=== PATIENT | male | born 1995 | race Hispanic/Latino ===

== ENCOUNTER 2020-12-04 08:41 | Emergency (ER) | payer SELFPAY ==
[~2020-12-04] VITALS: Ht 175.3 cm; Wt 95.3 kg
[2020-12-04 08:43] VITALS: BP 176/93
[2020-12-04] MEDS ORDERED: AMOX-429 PO (09:07)
[2020-12-04] MEDS ORDERED: NAPR500T6 PO (09:07)
[2020-12-04] MEDS ORDERED: DIPH,PERTUSS(ACELL),TET VAC/PF 0.5 ML VIAL IM SCH (09:30)
[2020-12-04] MEDS ORDERED: DIPH,PERTUSS(ACELL),TET VAC/PF 0.5 ML VIAL IM ONE (10:00)
[2020-12-04] MEDS ORDERED: TETANUS/DIPHTHERIA TOXOID [ADULT] 0.5 ML VIAL IM ONE (10:03)
[2020-12-04] MEDS ORDERED: ACETAMINOPHEN 500 MG TABLET ONE (10:12)
[2020-12-04] MEDS ORDERED: ACETAMINOPHEN 500 MG TABLET PO SCH (10:30)
== END 2020-12-04 10:51 | disposition home or self-care (01) ==
LOC: EDH 08:41
DX: S61.451A Open bite of right hand, initial encounter (principal); L08.9 Local infection of the skin and subcutaneous tissue, unspecified; W54.0XXA Bitten by dog, initial encounter; Y93.89 Activity, other specified; Y92.89 Other specified places as the place of occurrence of the external cause; Y99.8 Other external cause status
CPT/HCPCS: 90471; 90714; 90715